=== PATIENT | female | born 1960 | race Caucasian/White ===

== ENCOUNTER 2019-10-19 18:50 | Emergency (ER) | payer MEDICARE, BC ==
[2019-10-19] MEDS ORDERED: Famotidine 20 MG/2 ML SDV ONE (18:55)
[2019-10-19] MEDS ORDERED: diphenhydrAMINE 50 MG/ML SDV ONE (18:55)
[2019-10-19] MEDS ORDERED: methylPREDNISolone Sodium Succinate 125 MG/2 ML SDV ONE (18:55)
[2019-10-19] MEDS ORDERED: EPINEPHrine 1 MG/1 ML Amp ONE (18:55)
[2019-10-19] MEDS ORDERED: EPINEPHrine 1 MG/ML SDV IM ONE (19:04)
--- NOTE | 2019-10-19 19:15 | EDM.PDOC ---
ED HPI GENERAL MEDICAL PROBLEM - General Chief Complaint: Allergic Reaction Stated Complaint: allergic reaction Time Seen by Provider: 10/19/19 18:55 Source of Information: Reports: Patient History Limitations: Reports: No Limitations - History of Present Illness INITIAL COMMENTS - FREE TEXT/NARRATIVE: TRIAGE NOTE -- pt has known allergy to peanuts - ingested some chocoolate about 15 minutes-a half hour ago. attempt to use epipen which is -but didnt think it went off. pt coughing-unable to speak long sentences feels like throat is swelling [ End ] As above. Known history of anaphylaxis provoked by peanuts. 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 Only other concerning history is a persistent dry cough for about the past month which has not been evaluated. No fever or serious illness otherwise leading up to this. The allergic reaction was apparently provoked by a peanut-containing candy short while before the attack. Risk factor as noted is history of anaphylaxis with peanut allergy. Also patient is an insulin-dependent diabetic and has high blood pressure. Only intervention prior to arrival was use of a personal EpiPen which was thought to have been as it was over 2 years old. - Related Data Allergies Allergy/AdvReac Type Severity Reaction Status Date / Time peanut Allergy Severe Anaphylactic Verified 10/19/19 19:03 Shock diltiazem HCl [From Cardizem] Allergy Hives Verified 10/19/19 19:03 Penicillins Allergy Hives Verified 10/19/19 19:03 Home Meds: Home Meds Amitriptyline [Elavil] 10 mg PO ASDIRECTED PRN 09/14/14 [History] Aspirin [Ecotrin EC] 325 mg PO DAILY 09/14/14 [History] Enalapril [Vasotec] 5 mg PO DAILY 09/14/14 [History] Esomeprazole [NexIUM] 22.3 mg PO DAILY 09/14/14 [History] Humalog Omniped. 09/14/14 [History] Levothyroxine [Synthroid] 100 mcg PO DAILY 09/14/14 [History] Loratadine 10 mg PO DAILY 09/14/14 [History] Melatonin 20 mg PO BID PRN 09/14/14 [History] Meloxicam [Mobic] 15 mg PO ASDIRECTED PRN 09/14/14 [History] Multivitamin [Daily Multiple Vitamin] 1 tab PO DAILY 09/14/14 [History] Pravastatin [Pravachol] 40 mg PO BEDTIME 09/14/14 [History] Pregabalin [Lyrica] 75 mg PO BID 09/14/14 [History] Sertraline [Zoloft] 50 mg PO DAILY 09/14/14 [History] HYDROmorphone [Dilaudid] 2 mg PO Q6H PRN #12 tab 05/08/18 [Rx] Multivitamins,Therapeutic [Thera] 1 each PO DAILY tablet 05/08/18 [Rx] Patient's Own Medication [Ptom] 0 each .XX ASDIRECTED each 05/08/18 [Rx] traMADol HCl [Tramadol HCl] 50 mg PO Q8HR PRN #30 tablet 05/08/18 [Rx] Past Medical History Cardiovascular History: Reports: Hypertension Respiratory History: Reports: Asthma, SOB Gastrointestinal History: Reports: GERD Other Gastrointestinal History: 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: Musculoskeletal History: Reports: Fibromyalgia, Osteoarthritis Neurological History: Reports: Neuropathy, Diabetic Psychiatric History: Reports: Depression Endocrine/Metabolic History: Reports: Diabetes, Type I, Hypothyroidism, Obesity/ BMI 30+ Do You Have Enough Pump Supplies for Your Hospital Stay: Yes Who Manages Your Pump: Family/Caregiver, Patient (Self) Patient Able to Demonstrate: Current Pump Settings (Basal Rates), Describe How to Change Infusion Set & Insertion Set, Home Meter Results within 15% of Hospital Meter Results, How to Get to Bolus Settings & Administer if Needed, Suspend Pump Dermatologic History: Reports: Eczema - Infectious Disease History Infectious Disease History: Reports: Chicken Pox, Influenza - Past Surgical History HEENT Surgical History: Reports: Oral Surgery Respiratory Surgical History: Reports: None GI Surgical History: Reports: Appendectomy Musculoskeletal Surgical History: Reports: Knee Replacement, Other (See Below) Other Musculoskeletal Surgeries/Procedures:: bilateral knee replacements, rotator cuff surgery in right shoulder, pins put in upper femur from falling in the past. Social & Family History - Family History Family Medical History: Noncontributory - Tobacco Use Smoking Status *Q: Former Smoker Used Tobacco, but Quit: Yes Month/Year Tobacco Last Used: 07/2011 - Caffeine Use Caffeine Use: Reports: Coffee, Soda - Recreational Drug Use Recreational Drug Use: No ED ROS ALLERGIC REACTION - Review of Systems Review Of Systems: Comprehensive ROS is negative, except as noted in HPI. ED EXAM GENERAL NO PERIP PULSE - Physical Exam Exam: See Below Exam Limited By: No Limitations General Appearance: Alert, WD/WN, Mild Distress Eye Exam: Bilateral Eye: EOMI, PERRL Ears: Normal External Exam Nose: Normal Inspection Throat/Mouth: Other (Very mild edema of the posterior pharynx. No stridor. Normal vocal quality.) Head: Atraumatic, Normocephalic Neck: Normal Inspection, Supple Respiratory/Chest: Other (Initially patient was tachypneic, coughing frequently , bringing up light-colored secretions, coarse rhonchi throughout the lung woods bilaterally.) Cardiovascular: Regular Rate, Rhythm GI/Abdominal: Soft, Non-Tender Back Exam: Normal Inspection Extremities: Normal Inspection Neurological: Alert, Oriented Psychiatric: Normal Affect, Normal Mood Skin Exam: Warm, Dry Course - Vital Signs Last Recorded V/S: Last Vital Signs Temp 36.0 C 10/19/19 18:52 Pulse 72 10/19/19 18:52 Resp 12 10/19/19 18:52 BP 135/55 L 10/19/19 18:52 Pulse Ox 100 10/19/19 19:39 - Orders/Labs/Meds Orders: Active Orders 24 hr Category Date Time Status RT Aerosol Therapy [RC] ASDIRECTED Care 10/19/19 19:22 Active CXR [Chest 1V Frontal] [CR] Stat Exams 10/19/19 19:19 Taken Meds: Medications Discontinued Medications Generic Name Dose Route Start Last Admin Trade Name Morris PRN Reason Stop Dose Admin Albuterol/Ipratropium 3 ml 10/19/19 19:22 10/19/19 19:37 Duoneb 3.0-0.5 Mg/3 Ml NEB 10/19/19 19:23 3 ml ONETIME ONE Administration Diphenhydramine HCl Confirm 10/19/19 18:55 10/19/19 19:19 Benadryl Administered 10/19/19 18:56 Not Given Dose 50 mg .ROUTE .STK-MED ONE Epinephrine HCl Confirm 10/19/19 18:55 10/19/19 19:19 Adrenalin Administered 10/19/19 18:56 Not Given Dose 1 mg .ROUTE .STK-MED ONE Epinephrine HCl 0.3 mg 10/19/19 19:04 10/19/19 19:05 Adrenalin IM 10/19/19 19:05 0.3 mg ONETIME ONE Administration Famotidine Confirm 10/19/19 18:55 10/19/19 19:19 Pepcid Administered 10/19/19 18:56 Not Given Dose 20 mg .ROUTE .STK-MED ONE Methylprednisolone Sodium Succinate Confirm 10/19/19 18:55 10/19/19 19:19 Solu-Medrol Administered 10/19/19 18:56 Not Given Dose 125 mg .ROUTE .STK-MED ONE - Re-Assessments/Exams Free Text/Narrative Re-Assessment/Exam: 10/19/19 20:22 Patient received epinephrine IM 0.3 mg. She also had a DuoNeb treatment. The patient recovered uneventfully from her episode. At discharge lungs were almost completely clear, respiratory rate 16-20, heart rate in the 70s sinus rhythm, oxygen saturation mid to high 90s on room air. Discussed fully with patient and . Okay to go home with precautions. The patient has access to primary care and will avail herself for work-up of her persistent cough if that continues to be an issue. We deferred use of a steroid and other drugs as the patient had recovered completely and the steroids would create problems with her diabetes some hours from now if given. Chest x-ray shows no focal infiltrate. Mild peribronchial cuffing noted. Departure - Departure Time of Disposition: 20:29 Disposition: Home, Self-Care 01 Condition: Good Clinical Impression: Peanut allergy Anaphylaxis Qualifiers: Encounter type: initial encounter Qualified Code(s): T78.2XXA - Anaphylactic shock, unspecified, initial encounter - Discharge Information Referrals: Carla Holloway MD [Primary Care Provider] - Forms: ED Department Discharge Additional Instructions: You have been treated for an anaphylactic episode following ingestion of a peanut-containing candy. You have received epinephrine as well as a breathing treatment. You have improved significantly with normal vital signs and good oxygen saturation and it is safe to go home. No additional medications have been required. Lingering concern at this point is the persistent cough you have had for about a month. You are urged to go ahead and get this evaluated as soon as possible if that continues to be an issue. Strict precautions for return to ER, any respiratory difficulty fever any symptom of illness or any concerns whatsoever. Sepsis Event Note - Evaluation Sepsis Screening Result: No Definite Risk - Focused Exam Vital Signs: Vital Signs Temp Pulse Resp BP Pulse Ox Pulse Ox 10/19/19 19:39 100 10/19/19 18:52 36.0 C 72 12 135/55 L 91 L Date Exam was Performed: 10/19/19 Time Exam was Performed: 20:18 - My Orders Last 24 Hours: My Active Orders 10/19/19 19:19 CXR [Chest 1V Frontal] [CR] Stat 10/19/19 19:22 RT Aerosol Therapy [RC] ASDIRECTED - Assessment/Plan Last 24 Hours: My Active Orders 10/19/19 19:19 CXR [Chest 1V Frontal] [CR] Stat 10/19/19 19:22 RT Aerosol Therapy [RC] ASDIRECTED
[2019-10-19] MEDS ORDERED: Albuterol/Ipratropium 3.0-0.5 MG/3 ML Neb Soln NEB ONE (19:22)
--- NOTE | 2019-10-20 16:19 | CR ---
Chest: Portable view of the chest was obtained. Comparison: Previous chest x-ray of 09/09/14. Heart size and mediastinum are within normal limits for portable technique. Lungs are clear with no acute parenchymal change. Minimal scoliosis is noted within the spine. Impression: 1. Nothing acute is appreciated on portable chest x-ray. Diagnostic code #2 This report was dictated in [place] Standard Time
== END 2019-10-19 20:42 | disposition home or self-care (01) ==
LOC: JD.ED 18:50
DX: T78.2XXA Anaphylactic shock, unspecified, initial encounter (principal); Z91.010 Allergy to peanuts; I10 Essential (primary) hypertension; E10.9 Type 1 diabetes mellitus without complications; Z79.899 Other long term (current) drug therapy; Z79.82 Long term (current) use of aspirin; Z87.891 Personal history of nicotine dependence; Z88.0 Allergy status to penicillin; Z88.8 Allergy status to other drugs, medicaments and biological substances
CPT/HCPCS: 71045; 94640; 96372; 99285; J0171; J7620-GY

== ENCOUNTER 2022-02-16 14:35 | Emergency (ER) | payer MEDICARE, BC ==
[2022-02-16] MEDS ORDERED: Acetaminophen/HYDROcodone 325-5 MG Tab PO ONE (15:36)
[2022-02-16] MEDS ORDERED: Ondansetron 4 MG Tab.DIS PO ONE (15:36)
[2022-02-16] MEDS ORDERED: tiZANidine 4 MG Tab PO ONE (15:38)
== END 2022-02-16 17:40 | disposition home or self-care (01) ==
LOC: JD.ED 14:35
DX: S62.101A Fracture of unspecified carpal bone, right wrist, initial encounter for closed fracture (principal); E78.00 Pure hypercholesterolemia, unspecified; K21.9 Gastro-esophageal reflux disease without esophagitis; I10 Essential (primary) hypertension; M19.90 Unspecified osteoarthritis, unspecified site; E03.9 Hypothyroidism, unspecified; E10.40 Type 1 diabetes mellitus with diabetic neuropathy, unspecified; E66.9 Obesity, unspecified; Z68.35 Body mass index [BMI] 35.0-35.9, adult; Z90.49 Acquired absence of other specified parts of digestive tract; Z87.891 Personal history of nicotine dependence; Z79.899 Other long term (current) drug therapy; Z79.82 Long term (current) use of aspirin; Z91.010 Allergy to peanuts; Z88.0 Allergy status to penicillin; Z88.8 Allergy status to other drugs, medicaments and biological substances; W11.XXXA Fall on and from ladder, initial encounter
CPT/HCPCS: 29125; 73110; 99283; A9270

== ENCOUNTER 2025-07-10 19:47 | Emergency (ER) | payer MEDICARE, BC ==
[2025-07-10] MEDS ORDERED: Sodium Chloride 0.9% 10 ML Syringe FLUSH PRN (19:53)
[2025-07-10 20:10] LABS: BASOPHILS ABSOLUTE AUTO 0.1 K/mm3 (0.0-0.2); BASOPHILS PERCENT AUTO 0.9 % (0.0-1.0); EOSINOPHILS ABSOLUTE AUTO 0.2 K/mm3 (0.0-0.4); EOSINOPHILS PERCENT AUTO 3.1 % (0.0-6.0); IMMATURE GRAN ABSOLUTE AUTO 0.22 K/mm3 (0.00-0.05); IMMATURE GRAN PERCENT AUTO 3.2 % (0.0-0.4); LYMPHOCYTES ABSOLUTE AUTO 1.2 K/mm3 (1.0-4.8); LYMPHOCYTES PERCENT AUTO 17.6 % (24.0-44.0); MEAN PLATELET VOLUME 9.3 fl (9.4-12.3); MONOCYTES ABSOLUTE AUTO 0.5 K/mm3 (0.0-0.8); MONOCYTES PERCENT AUTO 7.3 % (0.0-8.0); NEUTROPHILS ABSOLUTE AUTO 4.7 K/mm3 (1.8-7.7); NEUTROPHILS PERCENT AUTO 67.9 % (41.0-71.0); NRBC ABSOLUTE 0.00 (0.00-0.02); NRBC PERCENT 0.0 % (0.0-0.2); PLATELET COUNT,PLT 242 K/mm3 (150-400); RED BLOOD CELL COUNT 3.80 M/mm3 (4.10-5.30); WHITE BLOOD CELL COUNT,WBC 6.86 K/mm3 (3.9-11.3)
[2025-07-10 20:44] LABS: A/G RATIO 0.8 (1-2); ALANINE AMINOTRANSFERASE,ALT 25.0 U/L (14-59); ASPARTATE AMNIOTRANSFERASE,AST 21.0 U/L (15-37); BILIRUBIN TOTAL 0.2 mg/dL (0.2-1.0); BLOOD UREA NITROGEN,BUN 12.0 mg/dL (7-18); CARBON DIOXIDE,CO2 31.0 mEq/L (21-32); CHLORIDE,CL 106.0 mEq/L (98-107); CREATININE 1.0 mg/dL (0.55-1.02); EST CRCL DRUG DOSING (CG) 41.36 mL/min; ESTIMATED GFR 63.0 mL/min (>60); POTASSIUM,K 4.2 mEq/L (3.5-5.1); PROTEIN TOTAL,TP 6.8 g/dl (6.4-8.2); SODIUM,NA 141.0 mEq/L (136-145); TROPONIN I HIGH SENSITIVITY 6.0 pg/mL (<=51)
[2025-07-10 20:56] LABS: GLUCOSE RANDOM 125.0 mg/dL (70-99)
== END 2025-07-10 23:50 | disposition home or self-care (01) ==
LOC: JD.ED 19:47
DX: R06.00 Dyspnea, unspecified (principal); R79.89 Other specified abnormal findings of blood chemistry; E03.9 Hypothyroidism, unspecified; E66.9 Obesity, unspecified; Z90.49 Acquired absence of other specified parts of digestive tract; Z88.0 Allergy status to penicillin; Z91.010 Allergy to peanuts; Z79.899 Other long term (current) drug therapy; Z79.890 Hormone replacement therapy
CPT/HCPCS: 36415; 71045; 71045-26; 80053; 83735; 83880; 84484; 85025; 85379; 93005; 93246; 99285